=== PATIENT | female | born 1945 | race Caucasian/White ===

== ENCOUNTER 2024-09-24 20:07 | Emergency (ER) | payer OTHER ==
[2024-09-24] MEDS ORDERED: Acetaminophen 500 MG TAB ONE (21:35)
[2024-09-24 21:37] LABS: #Basophils 0.04 10x3/uL (0.0-0.2); #Eosinophils 0.09 10x3/uL (0.0-0.5); #Neutrophils 4.66 10x3/uL (1.5-8.4); %Basophils 0.6 % (0.0-2.0); %Eosinophils 1.3 % (0.0-6.0); %Lymphocytes 24.6 % (18.0-47.0); %Monocytes 4.4 % (0.0-10.0); %Neutrophils 68.8 % (40.0-75.0); Hematocrit 39.4 % (34.9-44.5); Mean Corpuscular Hemoglobin 31.6 pg (27.0-33.0); Mean Corpuscular Volume 95.9 fL (81.6-98.3); Mean Platelet Volume 9.4 fL (7.4-10.4); Platelet Count 272 10x3/uL (150-450); RBC Distribution Width 13.2 % (11.5-14.5); Red Blood Cell (RBC) Count 4.11 10x6/uL (3.90-5.03); White Blood Cell (WBC) Count 6.8 10x3/uL (3.5-10.5)
[2024-09-24 21:47] LABS: PTT 26.2 sec (22.0-33.0); Prothrombin Time 10.6 sec (9.5-12.1)
[2024-09-24 21:56] LABS: ALT (SGPT) 25 U/L (8-55); AST (SGOT) 21 U/L (5-34); Albumin 4.2 g/dL (3.4-4.8); Alkaline Phosphatase 91 U/L (40-110); Anion Gap 12 mmol/L (10-20); BUN (Urea Nitrogen) 17 mg/dL (9.8-20.1); Bilirubin, Total 0.3 mg/dL (0.2-1.2); Calc. Creatinine Clearance 0 mL/min (70-130); Carbon Dioxide 26 mmol/L (23-31); Chloride 106 mmol/L (98-107); Estimated GFR 79; Glucose 101 mg/dL (83-110); Magnesium 2.2 mg/dL (1.6-2.6); Potassium 4.2 mmol/L (3.5-5.1); Protein, Total 7.2 g/dL (5.8-8.1); Sodium 140 mmol/L (136-145)
[2024-09-24 22:04] LABS: Troponin I Less than 0.010 ng/mL (< 0.028)
== END 2024-09-25 02:05 | disposition home or self-care (01) ==
LOC: CSHERS 20:07
DX: S72.111A Displaced fracture of greater trochanter of right femur, initial encounter for closed fracture (principal); E20.9 Hypoparathyroidism, unspecified; E03.9 Hypothyroidism, unspecified; Z55.0 Illiteracy and low-level literacy; Z79.890 Hormone replacement therapy; W01.0XXA Fall on same level from slipping, tripping and stumbling without subsequent striking against object, initial encounter
CPT/HCPCS: 36415; 70450; 70486; 72125; 72192; 80053; 83735; 84484; 85025; 85610; 85730; 93005

== ENCOUNTER 2025-07-22 17:20 | Emergency (ER) | payer OTHER ==
[2025-07-22] MEDS ORDERED: Acetaminophen 325 MG TAB ONE (18:03)
== END 2025-07-22 18:51 | disposition home or self-care (01) ==
LOC: CSHERS 17:20
DX: S92.354A Nondisplaced fracture of fifth metatarsal bone, right foot, initial encounter for closed fracture (principal); Z55.6 Problems related to health literacy; X50.1XXA Overexertion from prolonged static or awkward postures, initial encounter
CPT/HCPCS: 99283